=== PATIENT | female | born 1975 | race Caucasian/White ===

== ENCOUNTER 2022-06-22 06:04 | Day surgery (SDC) | payer MEDICAID ==
[~2022-06-22] VITALS: Ht 157.5 cm; Wt 99.8 kg
[2022-06-22] VITALS (17 sets, daily range): BP systolic 105–119; BP diastolic 55–74
[~2022-06-22 06:04] MED LIST: CETI10TA14 PO; ESTR1TAB PO; FAMO20TA8 PO; FLUT16SP26; FLUT1AER5 INH; INDOCYANINE GREEN 25 MG/10 ML VIAL IV ONE; LEVO100T9 PO; MONT-40 PO; albuterol 2.5 MG/3 ML nebule NEB ONE; clindamycin-Cleocin 900mg/D5W 50 ML IV ONE; famotidine 20mg tablet PO ONE; ringers solution, lacted 1,000 ML IV SCH
[2022-06-22] MEDS ORDERED: meperidine/PF 25mg/ml syringe IV PRN ×3 (07:45)
[2022-06-22] MEDS ORDERED: proCHLORperazine 10 MG/2 ml inj IV PRN (07:45)
[2022-06-22] MEDS ORDERED: ondansetron/PF 4mg/2ml inj IV PRN (07:45)
[2022-06-22] MEDS ORDERED: morphine 2 MG/ML inj. syringe IV PRN (07:45)
[2022-06-22] MEDS ORDERED: morphine 4 MG/ML inj SYRINge IV PRN (07:45)
[2022-06-22] MEDS ORDERED: ringers solution, lacted 1,000 ML IV SCH (07:45)
[2022-06-22] MEDS ORDERED: LIDOcaine 1% 30ml preserv. free vial ONE (07:59)
[2022-06-22] MEDS ORDERED: fentaNYL/PF 50MCG/1 ML 2ML syringe ONE (09:21)
[2022-06-22] MEDS ORDERED: midazolam 1 mg/ML 2ml injection ONE (09:21)
[2022-06-22] MEDS ORDERED: propofol inj 20 ML IV ONE (09:21)
[2022-06-22] MEDS: BUPIVAcaine/PF 2.5mg/ml (0.25%) 10ml vial ONE ×2 (10:22→10:29)
[2022-06-22] MEDS ORDERED: rocuronium 10mg/ml inj IV ONE (10:34)
[2022-06-22] MEDS ORDERED: ondansetron/PF 4mg/2ml inj ONE (10:34)
[2022-06-22] MEDS ORDERED: glycopyrrolate 0.2mg/ml inj ONE (10:35)
[2022-06-22] MEDS ORDERED: LIDOcaine 1%/PF 5ML 10 MG/ML VIAL ONE (10:35)
[2022-06-22] MEDS ORDERED: neostigmine methylsulfate 1 MG/ML 10ml vial ONE (10:35)
[2022-06-22] MEDS ORDERED: ketorolac trometh. 30mg/ml inj. ONE (10:43)
[2022-06-22] MEDS ORDERED: oxyCODONE/APAP 5-325mg tablet PO PRN (10:50)
--- NOTE | 2022-06-22 11:08 | NUR ---
Received from OR via [facility], accompanied by Anesthesiologist DR STERLING and report given by Anesthesiolgist. PT IS GROGGY BUT RESPONDS TO VERBAL STIMULI. PT PLACED ON BEDSIDE MONITOR, VSS. PT IN SR WITH RATE IN 80'S. PT RECEIVING 10L O2 TO MASK AND TOLERATING WELL WITH O2 SAT >95%. PT HAS 20G PIV TO RT HAND WITH LR INFUSING ORDERED. PT HAS 4 BANDAIDS ACROSS ABD HORIZONTALLY, ALL ARE CDI. PT DENIES PAIN AT THIS TIME AND WILL CONTINUE TO ASSESS
--- NOTE | 2022-06-22 13:40 | NUR ---
PT TAKEN OFF MONITOR SO SHE COULD GET DRESSED. WAS NOTIFIED OF PT STATUS AND WILL MEET US OUT FRONT
--- NOTE | 2022-06-22 14:05 | NUR ---
ALL DISCHARGE CRITERIA HAS BEEN MET. VSS, PAIN AT A TOLERABLE LEVEL, VOIDING AND ABLE TO SAFELY AMBULATE AND TRANSFER SELF. IV TAKEN OUT WITHOUT ANY COMPLICATIONS. ALL DISCHARGE INSTRUCTIONS COVERED WITH PATIENT AND ALL QUESTIONS ANSWERED. PATIENT TAKEN OUT VIA WHEELCHAIR TO PERSONAL VEHICLE WHERE DROVE PATIENT HOME.
== END 2022-06-22 14:00 | disposition home or self-care (01) ==
LOC: PAS 06:04
PROVIDERS: ATTEND Surgery
DX: K80.10 Calculus of gallbladder with chronic cholecystitis without obstruction (principal); Z79.899 Other long term (current) drug therapy; Z98.890 Other specified postprocedural states; Z88.0 Allergy status to penicillin; Z88.2 Allergy status to sulfonamides; E03.9 Hypothyroidism, unspecified; F32.9 Major depressive disorder, single episode, unspecified
CPT/HCPCS: 47563; 82948; 87811; 93005; 94640; 94664; 94760; J1885; J2250; J2405; J2704; J2710; J3010; J3490; J7030; J7120; S2900; Z7506; Z7508; Z7512; A4215; A4615; A4618; A7000